=== PATIENT | male | born 1990 | race Two or more races ===

== ENCOUNTER 2018-09-10 17:45 | Emergency (ER) | payer SELFPAY ==
[~2018-09-10] VITALS: Ht 165.1 cm; Wt 99.8 kg
[2018-09-10 19:22] LABS: BILIRUBIN,URINE NEGATIVE (NEG); CLARITY,URINE CLEAR; COLOR,URINE YELLOW; NITRITE,URINE NEGATIVE (NEG); PH,URINE 5.5; PROTEIN,URINE NEGATIVE (NEG-TRACE); UROBILINOGEN,URINE 0.2 mg/dL (0.2 mg/dL)
[2018-09-10 19:26] LABS: BASO % 1 % (0-3); EOS # 0.1 x10^3/uL (0.0-0.7); EOS % 1 % (0-3); HEMATOCRIT 46.7 % (39.0-53.0); HEMOGLOBIN 16.5 g/dL (13.0-17.5); LYMPH # 2.1 x10^3/uL (1.0-4.8); LYMPH % 31 % (24-48); MEAN CORPUSCULAR HEMOGLOBIN 31 pg (25-35); MEAN CORPUSCULAR HGB CONC 35 g/dL (31-37); MEAN CORPUSCULAR VOLUME 89 fL (79-100); MONO # 0.5 x10^3/uL (0.0-1.1); MONO % 8 % (0-9); NEUT # 4.1 x10^3uL (1.8-7.7); NEUT % 59 % (31-73); PLATELET COUNT 138 x10^3/uL (140-400); RED BLOOD COUNT 5.25 x10^6/uL (4.30-5.70); RED CELL DISTRIBUTION WIDTH 12.9 % (11.5-14.5); WHITE BLOOD COUNT 6.9 x10^3/uL (4.0-11.0)
[2018-09-10 19:29] LABS: BACTERIA,URINE 0 /HPF (0-FEW); RBC,URINE 0 /HPF (0-2); SQUAMOUS EPITHELIAL CELL,UR FEW /LPF; WBC,URINE RARE /HPF (0-4)
[2018-09-10] MEDS: ONDANSETRON PF 4 MG/2 ML VIAL. IV ONE (19:29)
[2018-09-10] MEDS: MORPHINE SULFATE 4 MG/ML VIAL. IV ONE ×2 (19:29→20:22)
[2018-09-10] MEDS: IV NORMAL SALINE 1000ML BAG 1,000 ML IV ONE (19:30)
[2018-09-10 19:34] LABS: CALCIUM 9.1 mg/dL (8.5-10.1); CREATININE 0.9 mg/dL (0.7-1.3); GFR 100.5; POTASSIUM 3.6 mmol/L (3.5-5.1)
[2018-09-10 19:40] LABS: ALBUMIN/GLOBULIN RATIO 1.1 (1.0-1.7); TOTAL BILIRUBIN 0.8 mg/dL (0.2-1.0); TOTAL PROTEIN 7.5 g/dL (6.4-8.2)
--- NOTE | 2018-09-10 19:59 | RAD ---
CT abdomen and pelvis without contrast TECHNIQUE: Helical multiplanar reconstructed noncontrast CT imaging of the abdomen and pelvis was acquired. HISTORY: Severe right lower quadrant abdominal pain. Abdomen findings: The upper aspect of the liver dome is outside the [id number]. Mild groundglass density likely atelectasis lung bases. Hypodensity of the liver likely represents advanced steatosis, with sparing at gallbladder fossa and adjacent to the falciform ligament. Gallbladder, pancreas, spleen, adrenal glands and kidneys are unremarkable. No nephroureterolithiasis or hydronephrosis. No obstruction or inflammation GI tract. The appendix is negative normal diameter of 5 mm without edema. The distal ileum at the right lower quadrant is mildly distended and there is mild edema along the inferior aspect of the terminal ileum within the adjacent fat, no dilation of the more proximal small bowel, this could represent low-grade changes of terminal ileitis. Increase in number subcentimeter right lower quadrant ileocolic mesenteric lymph nodes present. Pelvis findings: Small volume of dependent pelvic fluid to the right of midline. No bladder calculi. Prostate, rectum and bones are unremarkable. IMPRESSION: 1. Mild luminal distention and surrounding edema of the terminal ileum at the right lower quadrant may indicate terminal ileitis. No bowel obstruction evident. 2. Increased in number right lower quadrant ileocolic mesenteric lymph nodes likely reactive in nature from terminal ileitis or the sequela of mesenteric adenitis. 3. The appendix is negative. No nephroureterolithiasis. 4. Probable fatty liver. Exposure: One or more of the following individualized dose reduction techniques were utilized for this examination: 1. Automated exposure control 2. Adjustment of the mA and/or kV according to patient size 3. Use of iterative reconstruction technique Electronically signed by: Thang Schwartz MD (09/10/2018 7:55 PM) [facility]
--- NOTE | 2018-09-10 20:06 | PHYS DOC ---
Past Medical History Past Medical History: No Pertinent History Past Surgical History: No Surgical History Alcohol Use: Rarely Drug Use: None Adult General Chief Complaint Chief Complaint: ABDOMINAL PAIN HPI HPI Patient is a 28 year old male who presents to the emergency department with complaints of right lower quadrant pain that started yesterday. He denies any nausea, vomiting, diarrhea, bloody stools, fever, back pain, hematuria, or difficulty voiding. Patient reports burning with urination today. He denies any fevers. Patient also denies any medical or surgical history states that he is not allergic to any medications. Currently he rates his pain as a 7 out of 10 on the pain scale. Review of Systems Review of Systems Constitutional: Denies fever or chills [] HENT: Denies nasal congestion or sore throat [] Respiratory: Denies cough or shortness of breath [] Cardiovascular: No additional information not addressed in HPI [] GI: See history of present illness : See history of present illness Musculoskeletal: Denies back pain Integument: Denies rash or skin lesions [] Neurologic: Denies headache, focal weakness or sensory changes [] All other systems were reviewed and found to be within normal limits, except as documented in this note. Current Medications Current Medications Current Medications Medications (Trade) Dose Ordered Sig/Demetria Start Time Stop Time Status Last Admin Dose Admin Morphine Sulfate (Morphine Sulfate) 4 mg 1X ONCE 09/10/18 20:30 09/10/18 20:31 DC 09/10/18 20:22 4 MG Ondansetron HCl (Zofran) 4 mg 1X ONCE 09/10/18 19:30 09/10/18 19:31 DC 09/10/18 19:29 4 MG Sodium Chloride 1,000 ml @ 1,000 mls/hr 1X ONCE 09/10/18 19:30 09/10/18 20:29 DC 09/10/18 19:30 1,000 MLS/HR Allergies Allergies Allergies Coded Allergies Type Severity Reaction Last Updated Verified No Known Drug Allergies 09/10/18 No Physical Exam Physical Exam Constitutional: Well developed, well nourished, alert distress, non-toxic appearance. [] HENT: Normocephalic, atraumatic, bilateral external ears normal, oropharynx moist, no oral exudates, nose normal. [] Eyes: PERRLA, conjunctiva normal, no discharge. [] Neck: Normal range of motion, no tenderness, supple, no stridor. [] Cardiovascular: Heart rate regular rhythm, no murmur [] Lungs & Thorax: Bilateral breath sounds clear to auscultation [] Abdomen: Bowel sounds normal, soft,no masses, no pulsatile masses; right lower quadrant tenderness to palpation[] Skin: Warm, dry, no erythema, no rash. [] Back: No tenderness, no CVA tenderness. [] Extremities: No cyanosis, no clubbing, ROM intact, no edema. [] Neurologic: Alert and oriented X 3, normal motor function, normal sensory function, no focal deficits noted. [] Psychologic: Affect normal, judgement normal, mood normal. [] Current Patient Data Vital Signs Vital Signs Date Time Temp Pulse Resp B/P (MAP) Pulse Ox O2 Delivery O2 Flow Rate FiO2 09/10/18 20:35 64 109/65 (80) 97 Room Air 09/10/18 18:39 98.2 16 98.2 Lab Values Laboratory Tests Test 09/10/18 18:30 09/10/18 19:15 Urine Collection Type Unknown Urine Color Yellow Urine Clarity Clear Urine pH 5.5 Urine Specific [place] >=1.030 Urine Protein Negative mg/dL (NEG-TRACE) Urine Glucose (UA) Negative mg/dL (NEG) Urine Ketones (Stick) Negative mg/dL (NEG) Urine Blood Negative (NEG) Urine Nitrite Negative (NEG) Urine Bilirubin Negative (NEG) Urine Urobilinogen Dipstick 0.2 mg/dL (0.2 mg/dL) Urine Leukocyte Esterase Negative (NEG) Urine RBC 0 /HPF (0-2) Urine WBC Rare /HPF (0-4) Urine Squamous Epithelial Cells Few /LPF Urine Bacteria 0 /HPF (0-FEW) Urine Mucus Mod /LPF White Blood Count 6.9 x10^3/uL (4.0-11.0) Red Blood Count 5.25 x10^6/uL (4.30-5.70) Hemoglobin 16.5 g/dL (13.0-17.5) Hematocrit 46.7 % (39.0-53.0) Mean Corpuscular Volume 89 fL (79-100) Mean Corpuscular Hemoglobin 31 pg (25-35) Mean Corpuscular Hemoglobin Concent 35 g/dL (31-37) Red Cell Distribution Width 12.9 % (11.5-14.5) Platelet Count 138 x10^3/uL (140-400) L Neutrophils (%) (Auto) 59 % (31-73) Lymphocytes (%) (Auto) 31 % (24-48) Monocytes (%) (Auto) 8 % (0-9) Eosinophils (%) (Auto) 1 % (0-3) Basophils (%) (Auto) 1 % (0-3) Neutrophils # (Auto) 4.1 x10^3uL (1.8-7.7) Lymphocytes # (Auto) 2.1 x10^3/uL (1.0-4.8) Monocytes # (Auto) 0.5 x10^3/uL (0.0-1.1) Eosinophils # (Auto) 0.1 x10^3/uL (0.0-0.7) Basophils # (Auto) 0.0 x10^3/uL (0.0-0.2) Sodium Level 141 mmol/L (136-145) Potassium Level 3.6 mmol/L (3.5-5.1) Chloride Level 103 mmol/L (98-107) Carbon Dioxide Level 29 mmol/L (21-32) Anion Gap 9 (6-14) Blood Urea Nitrogen 13 mg/dL (8-26) Creatinine 0.9 mg/dL (0.7-1.3) Estimated GFR (Cockcroft-Gault) 100.5 BUN/Creatinine Ratio 14 (6-20) Glucose Level 102 mg/dL (70-99) H Calcium Level 9.1 mg/dL (8.5-10.1) Total Bilirubin 0.8 mg/dL (0.2-1.0) Aspartate Amino Transferase (AST) 28 U/L (15-37) Alanine Aminotransferase (ALT) 77 U/L (16-63) H Alkaline Phosphatase 89 U/L (46-116) Total Protein 7.5 g/dL (6.4-8.2) Albumin 4.0 g/dL (3.4-5.0) Albumin/Globulin Ratio 1.1 (1.0-1.7) Laboratory Tests 09/10/18 19:15 Laboratory Tests 09/10/18 19:15 EKG EKG [] Radiology/Procedures Radiology/Procedures PROCEDURE: CT ABDOMEN PELVIS WO CONTRAST CT abdomen and pelvis without contrast TECHNIQUE: Helical multiplanar reconstructed noncontrast CT imaging of the abdomen and pelvis was acquired. HISTORY: Severe right lower quadrant abdominal pain. Abdomen findings: The upper aspect of the liver dome is outside the [id number]. Mild groundglass density likely atelectasis lung bases. Hypodensity of the liver likely represents advanced steatosis, with sparing at gallbladder fossa and adjacent to the falciform ligament. Gallbladder, pancreas, spleen, adrenal glands and kidneys are unremarkable. No nephroureterolithiasis or hydronephrosis. No obstruction or inflammation GI tract. The appendix is negative normal diameter of 5 mm without edema. The distal ileum at the right lower quadrant is mildly distended and there is mild edema along the inferior aspect of the terminal ileum within the adjacent fat, no dilation of the more proximal small bowel, this could represent low-grade changes of terminal ileitis. Increase in number subcentimeter right lower quadrant ileocolic mesenteric lymph nodes present. Pelvis findings: Small volume of dependent pelvic fluid to the right of midline. No bladder calculi. Prostate, rectum and bones are unremarkable. IMPRESSION: 1. Mild luminal distention and surrounding edema of the terminal ileum at the right lower quadrant may indicate terminal ileitis. No bowel obstruction evident. 2. Increased in number right lower quadrant ileocolic mesenteric lymph nodes likely reactive in nature from terminal ileitis or the sequela of mesenteric adenitis. 3. The appendix is negative. No nephroureterolithiasis. 4. Probable fatty liver.[] Course & Med Decision Making Course & Med Decision Making Pertinent Labs and Imaging studies reviewed. (See chart for details) Dx: terminal Ileitis Ddx: appendicitis, bowel obstruction, kidney stone Ct concerning for terminal Ileitis. Labs were unremarkable. Pt was given 2 doses of morphine in the department. Reported reduced pain after the morphine. Patient was given the option to be admitted or to go home. Patient stated he would like to go home with antibiotics, pain pills, and follow up with gastroenterology. Prescriptions written for Flagyl and Cipro. Patient was instructed to Follow up with gastroenterology using the phone number provided, call in the morning to schedule an appointment. Return to the ER if your symptoms worsen. Patient verbalized an understanding of home care, medications, follow-up, and return to ED instructions and was in agreement with the plan of care. [] Dragon Disclaimer Dragon Disclaimer This electronic medical record was generated, in whole or in part, using a voice recognition dictation system. Departure Departure Impression: Primary Impression: Ileitis, terminal Disposition: 01 HOME, SELF-CARE Condition: STABLE Referrals: NO PCP (PCP) MIRZA YOUNG MD Patient Instructions: Abdominal Pain, [id number] Additional Instructions: Fill prescriptions and use as directed. Follow up with gastroenterology using the phone number provided, call in the morning to schedule an appointment. Return to the ER if your symptoms worsen. Scripts Hydrocodone Bit/Acetaminophen (HYDROCODONE-APAP 5-325 ) 1 Each Tablet 1 TAB PO PRN Q6HRS PRN for PAIN for 3 Days, #12 TAB 0 Refills Prov: JACKELINE ALMARAZ APRN 09/10/18 Ciprofloxacin Hcl (CIPRO) 500 Mg Tablet 1 TAB PO BID, #20 TAB Prov: JACKELINE ALMARAZ SECOND OPERATOR 09/10/18 Metronidazole (METRONIDAZOLE) 500 Mg Tablet 1 TAB PO TID, #30 TAB 0 Refills Prov: JACKELINE ALMARAZ APRN 09/10/18 Problem Qualifiers Primary Impression: Ileitis, terminal Digestive disease complication type: without complication Qualified Codes: K50.00 - Crohn's disease of small intestine without complications JACKELINE ALMARAZ SECOND OPERATOR Sep 10, 2018 20:06
[2018-09-10 20:35] VITALS: BP 109/65
[2018-09-10] MEDS ORDERED: HYDR-2758 PO (20:54)
[2018-09-10] MEDS ORDERED: METR500T8 PO (20:54)
[2018-09-10] MEDS ORDERED: CIPR500T94 PO (20:54)
== END 2018-09-10 21:14 | disposition home or self-care (01) ==
LOC: EDBD 17:45 → ER 17:45
DX: K50.00 Crohn's disease of small intestine without complications (principal); R30.0 Dysuria
CPT/HCPCS: 36415; 74176; 80053; 81001; 85025; 96374; 96375; 96376; 99285; J2270; J2405; J7030